=== PATIENT | female | born 1990 | race Caucasian/White ===

== ENCOUNTER 2017-03-28 02:26 | Inpatient (IN) | payer OTHER ==
[~2017-03-28] VITALS: Ht 162.6 cm; Wt 65.8 kg
[2017-03-28 02:56] LABS: ABSOLUTE BASOPHIL COUNT 0 /CUMM (0.0-0.2); ABSOLUTE EOSINOPHIL COUNT 0 /CUMM (0.0-0.7); ABSOLUTE GRANULOCYTE CT 5.4 /CUMM (1.4-6.5); ABSOLUTE LYMPH COUNT 2.4 /CUMM (1.2-3.4); ABSOLUTE MONOCYTE COUNT 0.6 /CUMM (0.10-0.60); BASOPHIL % 0.5 % (0.0-2.0); EOSINOPHIL % 0.5 % (0-5); GRANULOCYTE % 63.3 % (42.2-75.2); MEAN CORPUSCULAR HGB 30.4 PG (27.0-31.0); MEAN CORPUSCULAR HGB CONC 33.2 G/DL (33.0-37.0); MEAN CORPUSCULAR VOLUME 91.7 FL (81.0-99.0); MEAN PLATELET VOLUME 8.5 FL (7.4-10.4); PLATELET COUNT 149 /CUMM (130-400); RBC DISTRIBUTION WIDTH 16.3 % (11.5-14.5); RED BLOOD CELL CT 4.25 /CUMM (4.20-5.40); WHITE BLOOD CELL COUNT 8.5 /CUMM (4.8-10.8)
--- NOTE | 2017-03-28 03:30 | History & Physical Pre-Op ---
General Information and HPI MD Statement: I have seen and personally examined TEGAN VILLALPANDO and documented this H&P. The patient is a 27 year old F who presented with a patient stated chief complaint of [labor]. Source of Information: patient, old records Exam Limitations: no limitations History of Present Illness: began having labor pains tonight Allergies/Medications Allergies: Coded Allergies: NO KNOWN ALLERGIES (04/29/11) Compliance With Home Meds: GOOD Past History Medical History Tetanus Vaccine: Surgical History Pertinent Surgical History: none Review of Systems Review of Systems Constitutional: Reports: no symptoms. Denies: chills, fever. EENTM: Denies: blurred vision, double vision, visual changes. Cardiovascular: Denies: edema, palpitations. Respiratory: Denies: cough, short of breath. GI: Denies: diarrhea, nausea, vomiting. Genitourinary: Denies: hematuria. Neurological/Psychological: Denies: anxiety, depressed. Exam & Diagnostic Data Last 24 Hrs of Vital Signs/I&O vss Physical Exam General Appearance Alert, Oriented X3, Cooperative, Moderate Distress Cardiovascular Regular Rate Lungs Clear to Auscultation Abdomen Normal Bowel Sounds, Soft, No Tenderness Extremities No Edema Breasts Breast appear nl Last 24 Hrs of Labs/Marcos: Laboratory Tests 03/28/17 0245: CBC w Diff NO MAN DIFF REQ, RBC 4.25, MCV 91.7, MCH 30.4, RDW 16.3 H, MPV 8.5, Gran % 63.3, Lymphocytes % 28.5, Monocytes % 7.2, Eosinophils % 0.5, Basophils % 0.5, Absolute Granulocytes 5.4, Absolute Lymphocytes 2.4, Absolute Monocytes 0.6 , Absolute Eosinophils 0, Absolute Basophils 0, PUBS MCHC 33.2 Assessment/Plan Assessment/Plan: active labor expectant management As Ranked By This Provider Problem List: 1. NORMAL Attending MD Review Statement Attending Statement Attending MD Statement: examined this patient, discussed with family, discussed w/nursing
[2017-03-28 05:06] VITALS: BP 122/74
[2017-03-29 06:37] LABS: ABSOLUTE BASOPHIL COUNT 0.1 /CUMM (0.0-0.2); ABSOLUTE EOSINOPHIL COUNT 0.1 /CUMM (0.0-0.7); ABSOLUTE GRANULOCYTE CT 6.8 /CUMM (1.4-6.5); ABSOLUTE LYMPH COUNT 1.9 /CUMM (1.2-3.4); ABSOLUTE MONOCYTE COUNT 0.6 /CUMM (0.10-0.60); EOSINOPHIL % 0.6 % (0-5); GRANULOCYTE % 72.1 % (42.2-75.2); HEMATOCRIT 38.8 % (37-47); MEAN CORPUSCULAR HGB 30.5 PG (27.0-31.0); MEAN CORPUSCULAR HGB CONC 33.2 G/DL (33.0-37.0); MEAN PLATELET VOLUME 8.4 FL (7.4-10.4); PLATELET COUNT 145 /CUMM (130-400); RED BLOOD CELL CT 4.22 /CUMM (4.20-5.40); WHITE BLOOD CELL COUNT 9.4 /CUMM (4.8-10.8)
[2017-03-29] MEDS ORDERED: IBUPROFEN800 M1 PO (14:03)
--- NOTE | 2017-03-29 15:16 | PN- OBGYN ---
Surgical Brief Attending Note Brief Attending Note: DOING WELL. NO COMPLAINTS. DESIRES EARLY DISCHRAGE. AMBULATING, VOIDING, TOLERATING PAIN AND PO. +NURSING . SMALL LOCHIA. VSSAF FH @U EXT: NO CALF TENDERNESS Vital Signs Date Time Temp Pulse Resp B/P B/P Pulse O2 O2 Flow FiO2 Mean Ox Delivery Rate 03/28 0506 122/74 Laboratory Tests 03/29/17 0625: CBC w Diff NO MAN DIFF REQ, RBC 4.22, MCV 92.0, MCH 30.5, RDW 16.0 H, MPV 8.4, Gran % 72.1, Lymphocytes % 20.5, Monocytes % 5.8, Eosinophils % 0.6, Basophils % 1.0, Absolute Granulocytes 6.8 H, Absolute Lymphocytes 1.9, Absolute Monocytes 0.6, Absolute Eosinophils 0.1, Absolute Basophils 0.1, PUBS MCHC 33.2 Orders Procedure Date/time Status CBC WITHOUT DIFFERENTIAL 03/29 0600 Complete Discharge Patient 03/29 UNK Active Regular Diet 03/28 B Active Pathway - chart 03/28 0323 Active Vital Signs 03/28 0323 Active Activity/Ambulation 03/28 0323 Active TRANSFER ORDERS 03/28 0320 Complete Pathway - chart 03/28 0246 Active Misc Message 03/28 0246 Active Admit to inpatient 03/28 0246 Active Patient Data 03/28 0246 Active Vital Signs 03/28 0246 Complete OB: Monitoring 03/28 0246 Complete Activity/Ambulation 03/28 0246 Complete URINALYSIS 03/28 024 Complete CBC WITHOUT DIFFERENTIAL 03/28 024 Complete TYPE & SCREEN (NOT X-MATCH) 03/28 024 Complete Childbirth Center Pt Data 03/28 UNK Active VTE Mechanical Prophylaxis 03/28 UNK Active A/P PPD 1 . DOING WELL. ROUTINE PP CARE. EARLY DISCHARGE. PRECAUTIONS GIVEN
== END 2017-03-29 16:30 | DRG 775 ==
LOC: CBCO 02:26 → GNO 02:39
PROVIDERS: ADMIT Obstetrics & Gynecology
PROC: 10E0XZZ Delivery of Products of Conception, External Approach (ICD-10-PCS; principal; 2017-03-28)
DX: O99.02 Anemia complicating childbirth (principal); Z37.0 Single live birth; Z3A.39 39 weeks gestation of pregnancy
CPT/HCPCS: GNOS; 81001; J7120